=== PATIENT | male | born 1935 | race Caucasian/White ===

== ENCOUNTER 2017-04-18 05:56 | Emergency (ER) | payer OTHER ==
[~2017-04-18] VITALS: Ht 177.8 cm; Wt 72.7 kg
--- NOTE | 2017-04-18 06:04 | ED.REPORT ---
HPI-Abd Pain M 40 and Over Date of Service Apr 18, 2017 ED Provider: The patient is an 81 year old male with history of diabetes mellitus, carcinoid cancer, and previous cholecystectomy, who presents to the emergency department complaining of right-sided lower abdominal pain that he noticed when he woke up this morning at 0015. He describes the pain as throbbing, constant, and nagging. The pain radiates through to his back. He had one episode of vomiting prior to arrival. He has not had similar pain in the past. The patient states he normally has a bulge in his RLQ but its gone now. The patient has chronic diarrhea. He denies fever, chills, constipation, bloody emesis, bloody stools, hematuria or dysuria. He takes an aspirin daily. Nursing Notes Stated Complaint: ABDOMINAL PAIN LOW OXYGEN LEVELS Nursing Notes Reviewed: Yes Allergies: Coded Allergies: No Known Allergies (Unverified , 04/18/17) Scheduled PRN Hydrocodone-Acetaminophen 5-325 mg (Hydrocodone-Acetaminophen 5-325 mg) 1 Each Tablet 1-2 TABLET PO QID PRN PRN For Pain General Time Seen by MD: 06:04 Chief Complaint Abdominal pain Hx Obtained From: Patient Arrived By: Walk-in Sudden in Onset?: Yes Onset Occurred: 5 - 8 hours ago Symptom Duration: Since onset Progression since Onset: Constant Location: : RLQ Quality: Painful, Throbbing Radiation: : Back Severity: Current: Moderate Severity: Maximum: Moderate Recent Healthcare: No recent doctor visit, No recent hospitalization Similar Sx Previous: No Past Medical History Past Medical History Diabetes mellitus Carcinoid cancer Glaucoma Past Surgical History CABG Cholecystectomy Shoulder replacement Family History Noncontributory Smoking History Current Every Day Smoker Social History Alcohol Use: Denies alcohol use Other Social History: Good social support, Local resident Ambulatory Status Independent Review of Systems Constitutional: Denies: Chills, Fever GI: Reports: Abdominal pain, Diarrhea (chronic), Nausea, Vomiting, Denies: Bloody/tarry stool, Constipation, Hematemesis, Hematochezia, Melena Male: Denies Dysuria, Denies Hematuria Musculoskeletal: Reports: Back pain Complete sys rev & neg: except as marked. Physical Exam Initial Vital Signs Vital Signs (First) Date Time Temp Pulse Resp B/P Pulse Ox O2 Delivery O2 Flow Rate FiO2 04/18/17 06:08 36.7 57 22 180/67 98 Room Air Initial VS: Reviewed Head / Eyes: Atraumatic, Normocephalic, PERRL ENT: Mucous membranes moist, Conjunctiva normal, No scleral icterus Neck: Supple, Non-tender, Full range of motion Lymphatic: No lymphadenopathy Extremities: Vascular intact, Neuro intact, No swelling, No tenderness Skin: Warm, Dry, No cyanosis Neurologic: Alert, Oriented, Nonfocal Psychiatric: Mood/affect normal, Behavior normal, Normal thought content General/Constitutional: Awake, Alert Respiratory / Chest: Atraumatic, Breath sounds NL, Breath sounds = bilat, No respiratory distress, No rales, No rhonchi, No wheezing Cardiovascular: Heart rate NL, Regular rhythm, Heart sounds NL, No murmurs, No rubs, Peripheral circulation NL Abdomen: Soft, No rebound, BS normoactive, No distention, No hernia, No palpable mass, No pulsatile mass Tenderness/Guarding/Rebound: Positive: Tender RLQ... (with guarding) Back: Inspection NL, Non-tender, No CVA tenderness Interpretation & Diagnostics Lab Results Interpretation Result Diagram: 04/18/17 0620 04/18/17 0620 Test 04/18/17 06:20 04/18/17 09:35 White Blood Count 12.6th/mm3 (3.8-10.1) Red Blood Count 4.66mil/mm3 (4.40-5.80) Hemoglobin 14.9g/dL (13.8-17.2) Hematocrit 43.2% (41.0-50.0) Mean Corpuscular Volume 92.7fL (81-100) Mean Corpuscular Hemoglobin 32.0pg (27.0-35.0) Mean Corpuscular Hemoglobin Concent 34.5% (32.0-37.0) Red Cell Distribution Width 13.1% (12.3-15.4) Platelet Count 202bil/L (150-400) Neutrophils (%) (Auto) 92.9% (40-74) Lymphocytes (%) (Auto) 4.0% (14-46) Monocytes (%) (Auto) 2.5% (4-12) Eosinophils (%) (Auto) 0.2% (0-5) Basophils (%) (Auto) 0.2% (0-3) Prothrombin Time 10.4sec (8.1-12.5) Prothromb Time International Ratio 0.97ratio Sodium Level 135mEq/L (134-144) Potassium Level 4.7mEq/L (3.5-5.2) Chloride Level 94mEq/L (97-108) Carbon Dioxide Level 24mmol/L (18-29) Blood Urea Nitrogen 20mg/dL (8-27) Creatinine 1.28mg/dL (0.76-1.27) Estimat Glomerular Filtration Rate 57mL/min (>59) Glucose Level 294mg/dL (60-99) Lactic Acid Level 2.0mmol/L (0.4-2.0) Calcium Level 9.4mg/dL (8.5-10.1) Magnesium Level 1.7mg/dL (1.6-2.6) Total Bilirubin 0.8mg/dL (0.0-1.2) Aspartate Amino Transf (AST/SGOT) 17U/L (0-50) Alanine Aminotransferase (ALT/SGPT) 16U/L (0-44) Alkaline Phosphatase 102U/L (25-160) Total Protein 8.1g/dL (6.4-8.4) Albumin 4.0g/dL (3.4-5.0) Lipase 26U/L (13-60) Urine Color Straw (YELLOW) Urine Appearance Hazy (CLEAR,HAZY) Urine pH 5.0 (5.0-8.0) Urine Specific [place] 1.015 (1.003-1.035) Urine Protein Tracemg/dL (NEG,TRACE) Urine Glucose (UA) 100mg/dL (NEGATIVE) Urine Ketones 15mg/dL (NEGATIVE) Urine Occult Blood Large (NEGATIVE) Urine Nitrite Negative (NEGATIVE) Urine Bilirubin Negative (NEGATIVE) Urine Urobilinogen Normalmg/dL (NORMAL) Urine Leukocyte Esterase Negative (NEGATIVE) Urine RBC 11-50/hpf (0-2) Urine WBC 0-5/hpf (0-5) Urine Epithelial Cells Occasional/hpf (NONE-MOD) Urine Crystals None seen (NONE SEEN) Urine Bacteria Few/hpf (NONE-FEW) Urine Hyaline Casts None/lpf (NONE) Urine Granular Casts None seen (NONE SEEN) Urine Waxy Casts None seen (NONE SEEN) Urine Red Blood Cell Casts None seen (NONE SEEN) Urine White Blood Cell Casts None seen (NONE SEEN) Urine Mucus None seen (None Seen) Urine Trichomonas None seen (NONE SEEN) Urine Yeast None (NONE SEEN) Urinalysis Comment None Urine Culture Reflexed Not indicated ECG Interpretation ECG Interpretation: Sinus rhythm with a rate of 50 PACs Incomplete RBBB Time: 06:27 Interpreted by: ED physician CT Abd / Pelvis Interpretation IMPRESSION: 1. A 3 mm obstructive stone in the right distal ureter. There is mild right hydronephrosis and hydroureter with mild perinephric stranding. 2. Normal appendix. 3. Multiple left renal cysts and a superior pole renal cortical scar. 4. Punctate calcifications of pancreas consistent with chronic pancreatitis. 5. 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 6. Small hiatal hernia. 7. Gallbladder is absent. Mild intrahepatic biliary dilation and common bile duct dilation are likely sequelae of cholecystectomy. Dictated by: Fabrice Antonio M.D. on 04/18/2017 at 9:00 Interpretation / Wet Read by: Interpret - Radiologist, Discussed w radiologist Re-Eval/Medical Decision Med Decision/Clinical Course Ultimately the likely cause for the patient's pain is a small kidney stone. Incidentally he does have a abdominal wall hernia does not contain bowel but contains bladder. Discussed with urology who agrees with outpatient follow-up. Return and follow-up precautions given. Source of Hx: Old records, Family Time of Eval: 09:48 Re-Evaluation/Progress Note: Rechecked the patient. Discussed plan for discharge with outpatient followup. All questions were addressed. Consultation : Referral / Consult Name: Lyssa Hoffman MD Consulted With: Urology Call Returned at: 09:43 [employer] Unit Leader: Agrees with eval, Agrees with plan Note: Discussed CT findings with the on-call urologist. No significance to the bladder hernia. The patient is okay to be discharged home with outpatient followup. Counseled Regarding: Diagnosis, Lab results, Need for follow-up, When/why to return to ED Discharge & Departure Primary Impression: Abdominal pain Abdominal location: right lower quadrant Qualified Code: R10.31 - Right lower quadrant pain Additional Impressions: Ureterolithiasis Hypertension Abdominal hernia Disposition: Home Vital Signs - All Vital Signs Date Time Temp Pulse Resp B/P Pulse Ox O2 Delivery O2 Flow Rate FiO2 04/18/17 10:18 36.7 84 20 171/71 94 Room Air 04/18/17 08:16 78 31 194/69 93 Room Air 04/18/17 06:08 36.7 57 22 180/67 98 Room Air )( All Prior VS Reviewed: Yes Condition: Stable Patient Instructions: Acute Abdominal Pain (ED) Additional Instructions: Thank you for entrusting us with your care today. Your CT scan shows that you have a kidney stone. Use Vicodin as needed for pain. You should followup with a urologist in the next few weeks. We have given you a referral to Dr. Hoffman. Additionally you have an abdominal wall hernia which will need to be followed up by a general surgeon. Also your blood pressure was very elevated today, this was likely due to your pain and has come down. Follow-up with your primary care doctor regarding this. Return to the emergency department for any new or concerning symptoms. Referrals: Dannie Farmer MD,Lyssa Richardson Attestation Portions of this note were transcribed by Suzy Nguyen. I, Dr. Mortensen personally performed the history, physical exam and medical decision-making; I reviewed and confirmed the accuracy of the information in the transcribed note. Signed by: Dylan Garcia, 04/18/2017 at 1020. Chris Mortensen DO Apr 18, 2017 06:04 Suzy Nguyen Apr 18, 2017 06:19
[2017-04-18 06:08] VITALS: BP 180/67; PULSE 57; RESP 22; O2SAT 98
[2017-04-18] MEDS ORDERED: 0.9% Sodium Chloride 1,000 ML IV ONE (06:12)
[2017-04-18] MEDS ORDERED: Ondansetron 2 mg/mL 2 mL Inj IVPUSH PRN (06:15)
[2017-04-18] MEDS ORDERED: Iohexol 300 mg/mL 30 mL Inj PO ONE (06:20)
[2017-04-18 06:37] LABS: BASOPHILS % (AUTO) 0.2 % (0-3); EOSINOPHILS % (AUTO) 0.2 % (0-5); MONOCYTES % (AUTO) 2.5 % (4-12); Mean Corpuscular Volume 92.7 fL (81-100); NEUTROPHILS % (AUTO) 92.9 % (40-74); Platelet Count 202 bil/L (150-400)
[2017-04-18 07:01] LABS: INR 0.97 ratio
[2017-04-18 07:05] LABS: Magnesium 1.7 mg/dL (1.6-2.6)
[2017-04-18 08:16] VITALS: BP 194/69; PULSE 78; RESP 31; O2SAT 93
--- NOTE | 2017-04-18 09:19 | DRSVH ---
PROCEDURE: CT ABDOMEN AND PELVIS WITH CONTRAST ([id number]) INDICATIONS: Right lower quadrant pain. TECHNIQUE: After the administration of oral and intravenous contrast, 5 mm thick sections acquired from the diap hragm to the symphysis. 5 mm coronal and sagittal reformats were acquired. For radiation dose reduc tion, the following was used: automated exposure control, adjustment of mA and/or kV according to pa tient size. COMPARISON: None. FINDINGS: Image quality: Excellent. ABDOMEN: Lung bases: Lung bases are clear. Heart size is normal. There is a small hiatal hernia. Solid organs: There is a 3 mm stone in the distal right ureter at level of aortic bifurcation. There is mild right hydronephrosis/hydroureter with mild perinephric stranding. A cortical scar is seen in the superior pole of the left kidney. There is a large exophytic cyst in the superior pole of the le ft kidney measuring 4.1 cm. Smaller low density cortical nodules in the left kidney are also likely c ysts. Liver and spleen are normal in size and enhancement. Gallbladder is surgically absent. There is mild intrahepatic and extrahepatic biliary dilation. Pancreatic tail is truncated. Pancreas enhances nor dash. A punctate calcification in pancreas compatible with chronic pancreatitis. No adrenal nodules . Kidneys demonstrate normal size and enhancement, without hydronephrosis. Peritoneum and bowel: Appendix is normal. Bowel loops demonstrate normal wall thickness and caliber. No free fluid or air. Nodes and vessels: There is a 1.6 cm gastrohepatic ligament lymph node. No retroperitoneal or mesent leonides adenopathy by size criteria. Aorta and inferior vena cava are normal in size. Severe atheroscl erosis in distal aorta and iliac arteries bilaterally. Miscellaneous: There is a spigelian hernia on the right containing part of the urinary bladder. PELVIS: Genitourinary: Bladder wall thickness is normal. Prostate is enlarged. Miscellaneous: No inguinal hernias or adenopathy. Bones: No suspicious bony lesions. No vertebral body compression fractures. Severe degenerative ch anges in lumbar spine. IMPRESSION: 1. A 3 mm obstructive stone in the right distal ureter. There is mild right hydronephrosis and hydrou reter with mild perinephric stranding. 2. Normal appendix. 3. Multiple left renal cysts and a superior pole renal cortical scar. 4. Punctate calcifications of pancreas consistent with chronic pancreatitis. 5. 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 6. Small hiatal hernia. 7. Gallbladder is absent. Mild intrahepatic biliary dilation and common bile duct dilation are likely sequelae of cholecystectomy. 8. Severe atherosclerosis. Dictated by: Fabrice Antonio M.D. on 04/18/2017 at 9:00 Transcribed by: MATTHEW on 04/18/2017 at 9:20 Approved by: Fabrice Antonio M.D. on 04/18/2017 at 10:40
[2017-04-18] MEDS ORDERED: HYDR-4003 PO (10:01)
[2017-04-18 10:04] LABS: APPEARANCE,URINE HAZY (CLEAR,HAZY); COLOR,URINE STRAW (YELLOW)
[2017-04-18 10:05] LABS: OCCULT BLOOD,URINE LARGE (NEGATIVE); UROBILINOGEN,URINE NORMAL (NORMAL)
[2017-04-18 10:18] VITALS: BP 171/71; PULSE 84; RESP 20; O2SAT 94
== END 2017-04-18 10:19 | disposition home or self-care (01) ==
LOC: SED 05:56
DX: N20.1 Calculus of ureter (principal); I10 Essential (primary) hypertension; K46.9 Unspecified abdominal hernia without obstruction or gangrene; E11.9 Type 2 diabetes mellitus without complications; H40.9 Unspecified glaucoma; F17.200 Nicotine dependence, unspecified, uncomplicated; Z95.1 Presence of aortocoronary bypass graft; Z90.49 Acquired absence of other specified parts of digestive tract
CPT/HCPCS: 36415; 74177; 80053; 81000; 83605; 83690; 83735; 85025; 85610; 93005; 96361; 96374; 96375; 96376; 99285; J2270; J2405; J7030; Q9967

== ENCOUNTER 2017-04-22 13:01 | Emergency (ER) | payer OTHER ==
[~2017-04-22] VITALS: Ht 177.8 cm; Wt 70.5 kg
[~2017-04-22 13:01] MED LIST: HYDR-4003 PO
[2017-04-22 13:22] VITALS: BP 155/83; PULSE 73; RESP 16; O2SAT 98
[2017-04-22] MEDS ORDERED: 0.9% Sodium Chloride 1,000 ML IV ONE (13:36)
--- NOTE | 2017-04-22 13:36 | ED.REPORT ---
HPI-General Illness Date of Service Apr 22, 2017 ED Provider: Bhavik Jose MD Patient is an 81 year old male with a hx of CAD and DM who presents to the ED s /p being diagnosed with a kidney stone 4 days ago in this department. Since being home, he had not been able to manage his pain and has had worsening symptoms. His symptoms include ongoing R flank pain that radiates to his RLQ and groin, urinary frequency with decreased urine output, nausea, and vomiting. He denies fever, chills, hematochezia, hematemesis, or any other symptoms. During his visit 4 days ago, CT scan showed a 3 mm obstructive stone in the R distal ureter. He was discharged with [place] for pain and referred to Dr. Hoffman with urology. Nursing Notes Stated Complaint: ABD PAIN Chief Complaint: Male Abdominal Pain Nursing Notes Reviewed: Yes Allergies: Coded Allergies: No Known Allergies (Unverified , 04/22/17) Scheduled PRN Hydrocodone-Acetaminophen 5-325 mg (Hydrocodone-Acetaminophen 5-325 mg) 1 Each Tablet 1-2 TABLET PO QID PRN PRN For Pain Ondansetron ODT (Zofran ODT) 4 Mg Tablet 4 MG PO Q4H PRN PRN For Nausea oxyCODONE-Acetaminophen 5-325 mg (oxyCODONE-Acetaminophen 5-325 mg) 1 Each Tablet 1 TAB PO Q4H PRN PRN For Pain General Time Seen by MD: 13:33 Chief Complaint Other (Flank pain ) Hx Obtained From: Patient Arrived By: Walk-in Recent Healthcare: Recent doctor visit Similar Sx Previous: Yes Past Medical History Past Medical History Diabetes mellitus Carcinoid cancer Glaucoma CAD Past Surgical History CABG Cholecystectomy Shoulder replacement Family History Noncontributory Smoking History Current Every Day Smoker Social History Alcohol Use: Denies alcohol use Other Social History: Good social support, Local resident Ambulatory Status Independent Review of Systems Full Review of Systems Constitutional: Denies: Chills, Fever GI: Reports: Nausea, Vomiting, Denies: Hematemesis, Hematochezia Male: Reports Flank pain, Reports Urinary urgency, Reports Urination decreased Complete sys rev & neg: except as marked. Physical Exam Vital Signs Vital Signs Date Time Temp Pulse Resp B/P Pulse Ox O2 Delivery O2 Flow Rate FiO2 04/22/17 14:37 59 21 166/75 98 04/22/17 13:22 36.6 73 16 155/83 98 Room Air Initial VS: Reviewed Head / Eyes: Atraumatic, Normocephalic Neck: Full range of motion Skin: Warm, Dry Neurologic: Alert, Oriented, Nonfocal Psychiatric: Mood/affect normal, Behavior normal, Normal thought content Respiratory / Chest: Breath sounds NL, Breath sounds = bilat, No respiratory distress Cardiovascular: Heart rate NL, Regular rhythm, Heart sounds NL Abdomen: Soft Well healed surgical scar in the RUQ R sided mild tenderness to palpation Back: Atraumatic R flank tenderness to percussion Interpretation & Diagnostics Lab Results Interpretation Result Diagram: 04/22/17 1350 04/22/17 1350 Test 04/22/17 13:20 04/22/17 13:50 Urine Color Yellow (YELLOW) Urine Appearance Hazy (CLEAR,HAZY) Urine pH 5.0 (5.0-8.0) Urine Specific [place] 1.020 (1.003-1.035) Urine Protein 30mg/dL (NEG,TRACE) Urine Glucose (UA) Negativemg/dL (NEGATIVE) Urine Ketones 15mg/dL (NEGATIVE) Urine Occult Blood Large (NEGATIVE) Urine Nitrite Negative (NEGATIVE) Urine Bilirubin Negative (NEGATIVE) Urine Urobilinogen Normalmg/dL (NORMAL) Urine Leukocyte Esterase Negative (NEGATIVE) Urine RBC >50/hpf (0-2) Urine WBC 0-5/hpf (0-5) Urine Epithelial Cells Few/hpf (NONE-MOD) Urine Crystals None seen (NONE SEEN) Urine Bacteria Few/hpf (NONE-FEW) Urine Hyaline Casts None/lpf (NONE) Urine Granular Casts None seen (NONE SEEN) Urine Waxy Casts None seen (NONE SEEN) Urine Red Blood Cell Casts None seen (NONE SEEN) Urine White Blood Cell Casts None seen (NONE SEEN) Urine Mucus None seen (None Seen) Urine Trichomonas None seen (NONE SEEN) Urine Yeast None (NONE SEEN) Urinalysis Comment None Urine Culture Reflexed Not indicated White Blood Count 8.5th/mm3 (3.8-10.1) Red Blood Count 4.34mil/mm3 (4.40-5.80) Hemoglobin 14.1g/dL (13.8-17.2) Hematocrit 40.5% (41.0-50.0) Mean Corpuscular Volume 93.3fL (81-100) Mean Corpuscular Hemoglobin 32.5pg (27.0-35.0) Mean Corpuscular Hemoglobin Concent 34.8% (32.0-37.0) Red Cell Distribution Width 13.3% (12.3-15.4) Platelet Count 219bil/L (150-400) Neutrophils (%) (Auto) 80.2% (40-74) Lymphocytes (%) (Auto) 9.1% (14-46) Monocytes (%) (Auto) 8.6% (4-12) Eosinophils (%) (Auto) 1.3% (0-5) Basophils (%) (Auto) 0.4% (0-3) Sodium Level 134mEq/L (134-144) Potassium Level 4.2mEq/L (3.5-5.2) Chloride Level 96mEq/L (97-108) Carbon Dioxide Level 19mmol/L (18-29) Blood Urea Nitrogen 28mg/dL (8-27) Creatinine 1.84mg/dL (0.76-1.27) Estimat Glomerular Filtration Rate 38mL/min (>59) Glucose Level 155mg/dL (60-99) Calcium Level 8.6mg/dL (8.5-10.1) Magnesium Level 1.6mg/dL (1.6-2.6) Total Bilirubin 0.6mg/dL (0.0-1.2) Aspartate Amino Transf (AST/SGOT) 19U/L (0-50) Alanine Aminotransferase (ALT/SGPT) 44U/L (0-44) Alkaline Phosphatase 112U/L (25-160) Total Protein 7.2g/dL (6.4-8.4) Albumin 3.6g/dL (3.4-5.0) Lipase 27U/L (13-60) Hold Maldonado Top Tube Received (Received) Lab Results Interpretation: CT KUB: IMPRESSION: 1. The 3 mm right distal ureteral stone is now within the urinary bladder. There is mild right hydronephrosis and hydroureter. 2. No other renal calculi identified. 3. Left renal cyst. 4. Chronic pancreatitis. 5. A spigelian hernia on the right containing the anterior urinary bladder. 6. Hiatal hernia. 7. Enlarged prostate. Dictated by: Fabrice Antonio M.D. on 04/22/2017 at 14:00 Approved by: Fabrice Antonio M.D. on 04/22/2017 at 14:13 Re-Eval/Medical Decision Med Decision/Clinical Course Patient is an 81-year-old male who was seen in this emergency department approximately 4 days ago complaining of right flank pain. At that time he was diagnosed with a 3 mm distal ureteral stone. He was discharged with a prescription for pain medication. He presents back to the emergency room today complaining that the pain has worsened and that he is now started seeing nausea and vomiting. Here in the emergency department he is afebrile with stable vital signs and examination as above. He additionally complains that he has had some urinary frequency. Urinalysis was obtained and demonstrated large blood however there were no findings suggestive of UTI and he is afebrile here in the emergency room. He has some mild tenderness upon examination but no findings suggestive of an acute surgical intra-abdominal process. CT scan revealed that the distal ureteral stone is now in the urinary bladder however there are no other acute findings present. CBC was relatively unremarkable and metabolic panel was notable for acute kidney injury. I suspect that this is related to dehydration from his nausea and vomiting. Here in the emergency room he was treated with IV fluids, Zofran for nausea and hydromorphone for pain. He reported significant improvement in his symptoms. He tolerated PO. I provided him with a prescription for Zofran to manage his nausea and oxycodone for pain. He is advised to continue with plan to follow up with urology Dr. Hoffman. At this time I feel that he is appropriate for discharge. Prior to discharge follow-up and return precautions were reviewed in detail with the patient who verbalized understanding and agreement with the plan. The patient was discharged in stable condition. Time of Eval: 14:37 Re-Evaluation/Progress Note: Discussed plan for discharge. Patient understands and agrees with plan. All questions addressed at this time. Counseled Regarding: Diagnosis, Lab results, Need for follow-up, When/why to return to ED Discharge & Departure Primary Impression: Renal colic Additional Impressions: Flank pain Hematuria Acute kidney injury Dehydration Kidney stone Disposition: Home Discharge Condition All VS Reviewed: Yes Condition: Improved Additional Instructions: Thank you for seeking care at the emergency room. It is difficult for us to make definitive diagnoses in the ED but we believe that you are experiencing pain related to your kidney stone, we see no evidence of a urinary tract infection. There are signs U have some mild kidney injury and therefore you need to drink lots of fluids and have this rechecked in the next couple of days. Our primary goal today in the ED was to evaluate you for any life-threatening conditions. Your evaluation was reassuring. You will be discharged with a prescription for further pain medications and nausea medications. You should follow-up with the urologist in the next 1-2 days. You should return to the ED immediately if you develop worsening symptoms, fevers, vomiting, cough, shortness of breath, chest pain, lightheadedness, weakness or any other concerning signs or symptoms. Thank you for letting us partake in your care today. Narcotic Pain Medicine You have been prescribed a narcotic for pain relief. These drugs are usually combined with acetaminophen (Tylenol#3, Percocet, Darvocet, Anexsia, Vicodin) or aspirin (Empirin#3, Percodan, Synalogs-DC) for increased effect. Narcotics act on the central nervous system to reduce pain; they also impair mental alertness and physical abilities. We advise you not to drink alcohol, drive a car, or operate dangerous equipment when you are taking these drugs. You can lessen stomach irritation from your medicine by taking it with meals or a full glass of water. Common side effects of narcotics are: Nausea and vomiting , heartburn, constipation, dizziness, sleepiness, and mood changes. If you have bothersome side effects or symptoms of an allergic reaction (itching, hives, rash), stop taking your medicine and call your doctor or the emergency room right away. Please keep your narcotic medicine well out of the reach of children. [facility] Scribe Attestation Portions of this note were transcribed by Jone Boucher. I, Dr. Jose personally performed the history, physical exam and medical decision-making; I reviewed and confirmed the accuracy of the information in the transcribed note. Signed by: Jone Boucher 04/22/17, 1441 copies to: [facility] Bhavik Jose MD Apr 22, 2017 13:36 JONE BOUCHER Apr 22, 2017 14:28
[2017-04-22] MEDS ORDERED: Ondansetron 2 mg/mL 2 mL Inj IVPUSH PRN (13:40)
[2017-04-22] MEDS ORDERED: HYDROmorphone 0.5 mg/0.5 mL iSecure Syringe IVPUSH PRN (13:40)
--- NOTE | 2017-04-22 14:15 | DRSVH ---
PROCEDURE: CT KUB ([id number]) INDICATIONS: abd pain, h/o kidney stones TECHNIQUE: Noncontrast 5 mm thick sections acquired from the diaphragms to the symphysis. 5 mm thick coronal an d sagittal reformats were then performed. For radiation dose reduction, the following was used: aut omated exposure control, adjustment of mA and/or kV according to patient size. COMPARISON: [facility], CT, CT ABD PELVIS W CON, 04/18/2017, 7:36. FINDINGS: Image quality: Lung bases: Lung bases are clear. Heart size is normal. Tiny hiatal hernia. Urinary system: There are 3 mm right distal ureteral stone seen on 04/18/2017 is no longer present. T here is a 3 mm stone within the bladder. There is mild right hydronephrosis and hydroureter. Both kid neys are normal in size. No other kidney stones. There is a 4 cm cyst in left kidney. Bladder wall thickness is normal. The anterior aspect of the bladder is within the right spigelian hernia. Prosta te is enlarged. Other solid organs: Liver and spleen are normal in size. Gallbladder is not visualized. There is mi ld intrahepatic biliary dilation. Pancreas is normal in contours with punctate calcifications consis tent with chronic pancreatitis. No adrenal nodules. Peritoneum and bowel: Unenhanced bowel loops demonstrate normal wall thickness and caliber. No free fluid or air. Nodes and vessels: No retroperitoneal or mesenteric adenopathy by size criteria. Aorta and inferior vena cava are normal in caliber. There is severe atherosclerosis in distal abdominal aorta and sergio c arteries. Mild fusiform dilation of the distal aorta measuring 2.6 cm in diameter. Abdominal wall: There is a right spigelian hernia containing anterior aspect of the urinary bladder. Pelvis: No free pelvic fluid. No inguinal hernias or adenopathy. Bones: No suspicious bony lesions. No vertebral body compression fractures. 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 IMPRESSION: 1. The 3 mm right distal ureteral stone is now within the urinary bladder. There is mild right hydron ephrosis and hydroureter. 2. No other renal calculi identified. 3. Left renal cyst. 4. Chronic pancreatitis. 5. A spigelian hernia on the right containing the anterior urinary bladder. 6. Hiatal hernia. 7. Enlarged prostate. Dictated by: Fabrice Antonio M.D. on 04/22/2017 at 14:00 Approved by: Fabrice Antonio M.D. on 04/22/2017 at 14:13
[2017-04-22 14:17] LABS: BASOPHILS % (AUTO) 0.4 % (0-3); EOSINOPHILS % (AUTO) 1.3 % (0-5); MONOCYTES % (AUTO) 8.6 % (4-12); Mean Corpuscular Hemoglobin 32.5 pg (27.0-35.0); Mean Corpuscular Volume 93.3 fL (81-100); NEUTROPHILS % (AUTO) 80.2 % (40-74); Platelet Count 219 bil/L (150-400)
[2017-04-22 14:22] LABS: APPEARANCE,URINE HAZY (CLEAR,HAZY); COLOR,URINE YELLOW (YELLOW); OCCULT BLOOD,URINE LARGE (NEGATIVE); UROBILINOGEN,URINE NORMAL (NORMAL)
[2017-04-22 14:27] LABS: Magnesium 1.6 mg/dL (1.6-2.6)
[2017-04-22] MEDS ORDERED: ONDA4TAB9 PO (14:31)
[2017-04-22] MEDS ORDERED: OXYC1TAB24 PO (14:31)
[2017-04-22 14:37] VITALS: BP 166/75; PULSE 59; RESP 21; O2SAT 98
[2017-04-22 15:20] VITALS: BP 166/75; PULSE 59; RESP 21; O2SAT 98
== END 2017-04-22 15:23 | disposition home or self-care (01) ==
LOC: SED 13:01
DX: N20.0 Calculus of kidney (principal); N17.9 Acute kidney failure, unspecified; E86.0 Dehydration; R11.2 Nausea with vomiting, unspecified; C7A.00 Malignant carcinoid tumor of unspecified site; E11.59 Type 2 diabetes mellitus with other circulatory complications; I25.10 Atherosclerotic heart disease of native coronary artery without angina pectoris; H40.9 Unspecified glaucoma; F17.200 Nicotine dependence, unspecified, uncomplicated; Z95.1 Presence of aortocoronary bypass graft
CPT/HCPCS: 36415; 74176; 80053; 81000; 83690; 83735; 85025; 96374; 96375; 99285; J1170; J2405